=== PATIENT | female | born 1970 | race Caucasian/White ===

== ENCOUNTER 2019-07-07 08:25 | Day surgery (SDC) | payer BC ==
[~2019-07-07 08:25] MED LIST: Buffered Lidocaine 1% SYRIN* 1 ML/SYRINGE INTRADERM ONE; Lactated Ringers 1000 ML Bag* 1,000 ML IV SCH
[2019-07-07] MEDS ORDERED: ceFAZolin 2 GM in NS PREMIX(*) 2 GM/100 ML BAG IVPB ONE (09:15)
[2019-07-07] MEDS ORDERED: Midazolam* 1 MG/ML 5 ML VIAL (5 MG) ONE (09:34)
[2019-07-07] MEDS ORDERED: Bupivacaine 0.25% SDV* 30 ML ONE (09:49)
[2019-07-07] MEDS ORDERED: fentaNYL* 50 MCG/ML 2 ML VIAL (100 MCG VIAL) ONE (10:40)
[2019-07-07] MEDS ORDERED: Propofol* 10 MG/ML 20 ML BTL ONE ×2 (11:07→11:41)
[2019-07-07] MEDS ORDERED: Ondansetron INJ* 2 MG/ML VIAL ONE (11:07)
[2019-07-07] MEDS ORDERED: Ketorolac INJ* 30 MG/ML 1 ML VIAL ONE (11:07)
[2019-07-07] MEDS ORDERED: Dexamethasone IV* 4 MG/ML 1 ML (4 MG) ONE (11:07)
[2019-07-07] MEDS ORDERED: Lidocaine 2% PF * 5 ML VIAL ONE (11:07)
[2019-07-07] MEDS ORDERED: Glycopyrrolate IV* 0.2 MG/ML 1 ML VIAL ONE (11:07)
[2019-07-07] MEDS ORDERED: EPHEDrine (Pressors)* 50 MG/ML VIAL ONE (11:07)
[2019-07-07] MEDS ORDERED: oxyCODONE TAB* 5 MG TAB PO PRN (11:24)
[2019-07-07] MEDS ORDERED: Acetaminophen TAB* 325 MG PO PRN (11:24)
[2019-07-07] MEDS ORDERED: Naloxone* 0.4 MG/ML 1 ML VIAL IV PRN (11:24)
[2019-07-07] MEDS ORDERED: DiMENhydriNATE IV* 50 MG/ML VIAL IV PUSH PRN (11:24)
[2019-07-07 13:48] VITALS: BP 142/67
--- NOTE | 2019-07-08 01:14 | OP ---
DATE OF OPERATION: 07/07/19 - [facility] DATE OF : 66 SURGEON: Jourdan Alvarez MD PAMPHLET DISTRIBUTOR: RYLEE Greene ANESTHESIOLOGIST: Dr. Nguyen. ANESTHESIA: General. PRE-OP DIAGNOSES: 1. Severe recurrent right carpal tunnel syndrome. 2. Right cubital tunnel syndrome. 3. 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 POST-OP DIAGNOSES: 1. Severe right recurrent carpal tunnel syndrome with dense nerve adhesions. 2. Right cubital tunnel syndrome. OPERATIVE PROCEDURE: INDICATIONS: Ilene has had carpal tunnel surgery. After years, the numbness has recurred in the hand, it is dense. It is severe and extremely symptomatic. We talked about treatment options. She says all 5 fingers are affected. 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 She understands the risk of wound infections, nerve problems, and recurrent neuritis despite doing surgery. ESTIMATED BLOOD LOSS: 2 mL. COMPLICATIONS: None. FINDINGS: There were dense adhesions all about the median nerve. DESCRIPTION OF PROCEDURE: Ms. Ceballos was seen in the preoperative holding area. The correct site, side, and procedure were identified. We came back to the operating room. The arm was prepped and draped in the usual fashion and time- out was performed. The arm was exsanguinated with the Esmarch and the tourniquet inflated. I first made a longitudinal incision in the proximal palm. It was brought across the ulnar side of the wrist in Emy type fashion. Dissection was carried down through subcutaneous tissue. A very thin transverse carpal ligament was released just off the radial aspect of the hook of the hamate. Immediately noted were the flexor tendons in the carpal tunnel. The nerve was not seen. I went ahead and dissected proximally again through dense scar tissue and was able to find the nerve proximally just deep to the palmaris longus tendon. I then traced it distally and what had happened is that it was just densely adhered and stuck to the undersurface of the remnant of the transverse carpal ligament. I took a long time and I was able to carefully dissect it free from the transverse carpal ligament. I went ahead and performed a full neurolysis of the nerve. I debrided back the scar tissue. The nerve was not injured during the dissection. At this point, I had a nice neurolysis performed. I thought in an effort to try to prevent recurrent adhesions, I placed a nerve wrap and so we opened up an AxoGuard 7 x 40 mm nerve protector. This was wrapped around the nerve and then secured by sewing the edges of the wrap together with 6-0 Prolene suture taking care not to sew the wrap to the nerve. Once I had done this and confirmed that the nerve was not sewn into the wrap, there was nothing else I could do, things were looking good. The wound was irrigated out and skin was closed with 4-0 nylon suture. The arm was then abducted and externally rotated. I made a curvilinear incision over the cubital tunnel. Dissection was carried down. Howe's ligament was released. The medial antebrachial cutaneous nerve was identified and protected. I released the superficial FCU fascia. I then released a very katz subfascial layer and split the two ends of the FCU. I then came proximally, released the fascia overlying the nerve past the arcade of Gamaliel. At this point, the nerve was looking nicely decompressed. There was no ulnar nerve instability. I elected not to do a transposition. I also did not want to make any additional scar tissue and clearly she has propensity for forming scar tissue. The wound was irrigated out. Hemostasis was obtained with Bovie. Subcutaneous tissue was reapproximated with 3- 0 Vicryl. Skin was closed with 4-0 nylon. 0.25% Marcaine was infiltrated around all of the areas of the wounds. Soft dressings were applied and she was taken to the recovery room in stable condition. [id number]/[facility] #: [id number]
== END 2019-07-07 14:40 | disposition home or self-care (01) ==
LOC: OR 08:25
PROVIDERS: ATTEND Orthopaedic Surgery Hand Surgery
DX: G56.01 Carpal tunnel syndrome, right upper limb (principal); G56.21 Lesion of ulnar nerve, right upper limb; L90.5 Scar conditions and fibrosis of skin; E03.9 Hypothyroidism, unspecified; R01.1 Cardiac murmur, unspecified; F32.9 Major depressive disorder, single episode, unspecified
CPT/HCPCS: 81025; C1763; J0690; J1100; J1885; J2250; J2405; J2704; J3010; J3490

== ENCOUNTER 2022-04-05 17:18 | Inpatient (IN) ==
[2022-04-05 19:08] LABS: Urine Appearance Cloudy; Urine Bilirubin Negative (Negative); Urine Blood Negative (Negative); Urine Color Yellow; Urine Glucose Negative (Negative); Urine Ketones Negative (Negative); Urine Nitrite Negative (Negative); Urine Protein 1+(30 mg/dL) (Negative); Urine Specific Gravity 1.005 (1.002-1.030); Urine Urobilinogen Negative (Negative)
[2022-04-05 19:15] LABS: Urine Bacteria Absent (Absent); Urine Red Blood Cell Trace(0-2/hpf) (Absent); Urine Squamous Epithelial Cell Present (Absent); Urine White Blood Cell 3+(>20/hpf) (Absent)
[2022-04-05 19:24] LABS: Urine Benzodiazepine Screen None Detected (None Detect); Urine Cannabinoids Screen None Detected (None Detect); Urine Opiates Screen None Detected (None Detect)
[2022-04-06 11:18] LABS: ABS Basophils 0.1 10^3/ul (0-0.2); ABS Eosinophils 0.2 10^3/ul (0-0.6); ABS Monocytes 0.3 10^3/ul (0-0.8); ABS Neutrophils 5.1 10^3/ul (1.5-7.7); Eosinophil % 2.9 %; Hematocrit 41 % (35-47); Hemoglobin 13.6 g/dL (12.0-16.0); Lymphocyte % 15.5 %; Mean Corpuscular HGB Conc 33 g/dL (31-36); Mean Corpuscular Hemoglobin 29 pg (27-31); Mean Corpuscular Volume 89 fL (80-97); Mean Platelet Volume 8.5 fL (7.4-10.4); Platelet Count 185 10^3/uL (150-450); Red Blood Count 4.61 10^6 /uL (3.70-4.87); Red Cell Distribution Width 15 % (10-15); White Blood Count 6.7 10^3/uL (3.5-10.8)
[2022-04-06] MEDS: Venlafaxine XR 75 mg PO SCH (11:34)
[2022-04-06 12:02] LABS: Albumin 4.4 g/dL (3.2-5.2); Albumin/Globulin Ratio 1.6 (1-3); Calcium 10.1 mg/dL (8.6-10.3); Globulin 2.8 g/dL (2-4); Potassium 4.8 mmol/L (3.5-5.0); Total Bilirubin 0.5 mg/dL (0.2-1.0); Total Protein 7.2 g/dL (6.4-8.9)
[2022-04-06] MEDS: Latanoprost 0.005% 2.5 ml BTL LEFT EYE SCH (20:49)
[2022-04-06] MEDS ORDERED: Timolol 0.5% OPTH.SOL BTL LEFT EYE SCH (21:00)
[2022-04-07 07:48] LABS: HDL Cholesterol 58.1 mg/dL
[2022-04-07] MEDS: Timolol 0.5% OPTH.SOL BTL LEFT EYE SCH ×2 (08:44→17:26)
[2022-04-07] MEDS: Calcium Citrate 200 mg TAB PO SCH (08:45)
[2022-04-07] MEDS: Venlafaxine XR 75 mg PO SCH (08:45)
[2022-04-07] MEDS: Latanoprost 0.005% 2.5 ml BTL LEFT EYE SCH (20:32)
[2022-04-08] MEDS: Timolol 0.5% OPTH.SOL BTL LEFT EYE SCH ×2 (08:56→17:35)
[2022-04-08] MEDS: Calcium Citrate 200 mg TAB PO SCH (08:57)
[2022-04-08] MEDS: Venlafaxine XR 75 mg PO SCH (08:57)
[2022-04-08] MEDS: Latanoprost 0.005% 2.5 ml BTL LEFT EYE SCH (20:09)
[2022-04-09] MEDS: Venlafaxine XR 75 mg PO SCH (08:06)
[2022-04-09] MEDS: Calcium Citrate 200 mg TAB PO SCH (08:06)
[2022-04-09] MEDS: Timolol 0.5% OPTH.SOL BTL LEFT EYE SCH ×2 (08:06→17:08)
[2022-04-09] MEDS: Latanoprost 0.005% 2.5 ml BTL LEFT EYE SCH (20:34)
[2022-04-10] MEDS: Timolol 0.5% OPTH.SOL BTL LEFT EYE SCH (08:53)
[2022-04-10] MEDS: Calcium Citrate 200 mg TAB PO SCH (08:55)
[2022-04-10] MEDS: Venlafaxine XR 75 mg PO SCH (08:57)
[2022-04-10 10:49] VITALS: BP 137/57
== END 2022-04-10 12:48 | disposition home or self-care (01) | DRG 751 ==
LOC: ED 17:18 → EDHOLD 04-06 05:54 → BSU 04-06 06:23
PROVIDERS: ADMIT Psychiatry & Neurology Psychiatry; ATTEND Psychiatry & Neurology Psychiatry

== ENCOUNTER 2022-11-03 12:49 | Inpatient (IN) ==
[2022-11-03 14:09] LABS: ABS Lymphocytes 0.2 10^3/uL (1.0-4.8); ABS Monocytes 0.6 10^3/uL (0.0-0.9); ABS Neutrophils 11.6 10^3/uL (1.5-7.6); Hematocrit 36.8 % (35-45); Hemoglobin 12.1 g/dL (11.5-14.3); Lymphocyte % 1.9 %; Mean Corpuscular Hemoglobin 29.4 pg (27-33); Mean Corpuscular Volume 89.1 fL (80-97); Mean Platelet Volume 9.3 fL (7.5-11.2); Platelet Count 124 10^3/uL (150-450); Red Blood Count 4.13 10^6/uL (3.63-4.92); Red Cell Distribution Width 14.6 % (12-17); White Blood Count 12.4 10^3/uL (3.8-11.8)
[2022-11-03 14:13] LABS: Urine Appearance Turbid; Urine Bilirubin Negative (Negative); Urine Blood 3+ (Negative); Urine Color Amber; Urine Glucose Negative (Negative); Urine Ketones Negative (Negative); Urine Nitrite Positive (Negative); Urine Protein 2+(100 mg/dL) (Negative); Urine Urobilinogen Negative (Negative)
[2022-11-03] MEDS ORDERED: Lactated Ringers 1000 ml BAG 1,000 ML IV ONE ×2 (14:18→15:29)
[2022-11-03] MEDS ORDERED: cefTRIAXone 2 gm/50 mL D5W 2 GM/50 ML BAG IV ONE (14:18)
[2022-11-03 14:22] LABS: Urine Bacteria 2+ (Absent); Urine Red Blood Cell 3+(>10/hpf) (Absent); Urine Squamous Epithelial Cell Present (Absent); Urine White Blood Cell 3+(>20/hpf) (Absent)
[2022-11-03 14:27] LABS: Albumin 3.7 g/dL (3.2-5.2); Albumin/Globulin Ratio 1.1 (1-3); C Reactive Protein 218.76 mg/L (<8.01); Creatinine, Serum 3.77 mg/dL (0.51-0.95); Globulin 3.5 g/dL (2-4); Potassium 4.3 mmol/L (3.5-5.0); Total Bilirubin 1.5 mg/dL (0.2-1.0); Total Protein 7.2 g/dL (6.4-8.9); eGFR CKD-EPI 13.6 (>60)
[2022-11-03] MEDS: NS 0.9% 1000 ml BAG 1,000 ML IV SCH (22:14)
[2022-11-03] MEDS ORDERED: Timolol 0.5% OPTH.SOL BTL LEFT EYE SCH (22:45)
[2022-11-03] MEDS: Latanoprost 0.005% 2.5 ml BTL LEFT EYE SCH (23:26)
[2022-11-04 06:27] LABS: ABS Lymphocytes 0.2 10^3/uL (1.0-4.8); ABS Monocytes 0.5 10^3/uL (0.0-0.9); ABS Neutrophils 4.7 10^3/uL (1.5-7.6); Eosinophil % 0.1 %; Hematocrit 31.8 % (35-45); Hemoglobin 10.9 g/dL (11.5-14.3); Lymphocyte % 4.6 %; Mean Corpuscular Hemoglobin 30.3 pg (27-33); Mean Corpuscular Hgb Conc 34.3 g/dL (31-36); Mean Corpuscular Volume 88.3 fL (80-97); Mean Platelet Volume 9.5 fL (7.5-11.2); Nucleated Red Blood Cells % 0.1 /100 WBC (0.0-0.4); Platelet Count 107 10^3/uL (150-450); Red Cell Distribution Width 14.3 % (12-17); White Blood Count 5.4 10^3/uL (3.8-11.8)
[2022-11-04 06:43] LABS: Albumin/Globulin Ratio 1.1 (1-3); Calcium 8.4 mg/dL (8.6-10.3); Creatinine, Serum 3.49 mg/dL (0.51-0.95); Globulin 2.7 g/dL (2-4); Magnesium 2.2 mg/dL (1.9-2.7); Potassium 4.2 mmol/L (3.5-5.0); Total Bilirubin 1.4 mg/dL (0.2-1.0); Total Protein 5.7 g/dL (6.4-8.9); eGFR CKD-EPI 14.9 (>60)
[2022-11-04] MEDS: NS 0.9% 1000 ml BAG 1,000 ML IV SCH ×2 (07:26→17:01)
[2022-11-04] MEDS ORDERED: Venlafaxine XR 75 mg PO SCH (09:00)
[2022-11-04] MEDS: DULoxetine DR 30 mg CAP PO SCH (10:46)
[2022-11-04] MEDS: Timolol 0.5% OPTH.SOL BTL LEFT EYE SCH ×2 (10:46→17:02)
[2022-11-04] MEDS ORDERED: Cholestyramine Resin 4 GM POWDER PO SCH (11:00)
[2022-11-04] MEDS ORDERED: cefTRIAXone 1 gm/50 mL D5W 1 GM/50 ML BAG IV SCH (14:00)
[2022-11-04] MEDS: cefTRIAXone 1 gm/50 mL D5W 1 GM/50 ML BAG IV SCH (15:35)
[2022-11-04] MEDS: Latanoprost 0.005% 2.5 ml BTL LEFT EYE SCH (21:51)
[2022-11-05 09:10] LABS: Albumin 3.2 g/dL (3.2-5.2); Calcium 8.8 mg/dL (8.6-10.3); Creatinine, Serum 2.94 mg/dL (0.51-0.95); Globulin 3.1 g/dL (2-4); Potassium 4.4 mmol/L (3.5-5.0); Total Bilirubin 1.7 mg/dL (0.2-1.0); Total Protein 6.3 g/dL (6.4-8.9); eGFR CKD-EPI 18.4 (>60)
[2022-11-05] MEDS: NS 0.9% 1000 ml BAG 1,000 ML IV SCH ×2 (09:34→23:00)
[2022-11-05] MEDS: Timolol 0.5% OPTH.SOL BTL LEFT EYE SCH ×2 (09:34→16:40)
[2022-11-05] MEDS: DULoxetine DR 30 mg CAP PO SCH (09:35)
[2022-11-05] MEDS: cefTRIAXone 1 gm/50 mL D5W 1 GM/50 ML BAG IV SCH (14:09)
[2022-11-05 14:12] LABS: Hepatitis B Surface Antigen Nonreactive (Nonreactive)
[2022-11-05 14:29] LABS: Hepatitis B Surface Ab Not Immune (Immune)
[2022-11-05 14:30] LABS: Hepatitis C Antibody Negative (Negative)
[2022-11-05] MEDS ORDERED: Benzocaine/Menthol LOZ MT PRN (16:28)
[2022-11-05] MEDS: guaiFENesin 100 mg/5 ml LIQ unit dose cup PO PRN (16:40)
[2022-11-05] MEDS: Latanoprost 0.005% 2.5 ml BTL LEFT EYE SCH (20:58)
[2022-11-05] MEDS: Benzocaine (plain) Lozenge 15 MG MT PRN (20:58)
[2022-11-06 07:15] LABS: Albumin/Globulin Ratio 1.1 (1-3); Calcium 8.4 mg/dL (8.6-10.3); Creatinine, Serum 2.82 mg/dL (0.51-0.95); Globulin 2.8 g/dL (2-4); Potassium 4.5 mmol/L (3.5-5.0); Total Bilirubin 1.4 mg/dL (0.2-1.0); Total Protein 5.8 g/dL (6.4-8.9); eGFR CKD-EPI 19.3 (>60)
[2022-11-06] MEDS: DULoxetine DR 30 mg CAP PO SCH (08:58)
[2022-11-06] MEDS: Benzocaine (plain) Lozenge 15 MG MT PRN ×2 (08:59→17:05)
[2022-11-06] MEDS: Timolol 0.5% OPTH.SOL BTL LEFT EYE SCH ×2 (08:59→17:05)
[2022-11-06] MEDS: cefTRIAXone 1 gm/50 mL D5W 1 GM/50 ML BAG IV SCH (14:23)
[2022-11-06] MEDS ORDERED: Piperacillin/Tazobac ADVAN 3.375 GM in NS 0.9% 100 ml BAG 100 ML IV ONE (18:22)
[2022-11-06] MEDS ORDERED: Lactated Ringers 1000 ml BAG 1,000 ML IV ONE (18:25)
[2022-11-06] MEDS ORDERED: Zosyn per Pharmacy NOTE FOLLOW UP SCH (19:00)
[2022-11-06] MEDS: Latanoprost 0.005% 2.5 ml BTL LEFT EYE SCH (19:54)
[2022-11-07] MEDS: ZOSYN 3.375 GM Q12H per EXTENDED INFUSION IV SCH ×2 (00:13→13:33)
[2022-11-07 08:00] LABS: Hematocrit 30.2 % (35-45); Hemoglobin 10.3 g/dL (11.5-14.3); Mean Corpuscular Hemoglobin 30.1 pg (27-33); Mean Corpuscular Hgb Conc 34.1 g/dL (31-36); Mean Corpuscular Volume 88.3 fL (80-97); Mean Platelet Volume 9.7 fL (7.5-11.2); Platelet Count 134 10^3/uL (150-450); Red Blood Count 3.42 10^6/uL (3.63-4.92); Red Cell Distribution Width 14.2 % (12-17); White Blood Count 6.8 10^3/uL (3.8-11.8)
[2022-11-07 08:16] LABS: C Reactive Protein 96.7 mg/L (<8.01); Calcium 8.8 mg/dL (8.6-10.3); Creatinine, Serum 2.8 mg/dL (0.51-0.95); Globulin 2.9 g/dL (2-4); Potassium 4.5 mmol/L (3.5-5.0); Total Bilirubin 1.2 mg/dL (0.2-1.0); Total Protein 5.9 g/dL (6.4-8.9); eGFR CKD-EPI 19.5 (>60)
[2022-11-07] MEDS ORDERED: Lactated Ringers 1000 ml BAG 1,000 ML IV ONE (08:54)
[2022-11-07 09:05] LABS: ABS Eosinophils 0.2 10^3/uL (0.0-0.5); ABS Lymphocytes 0.7 10^3/uL (1.0-4.8); ABS Monocytes 1.1 10^3/uL (0.0-0.9); ABS Neutrophils 4.8 10^3/uL (1.5-7.6); Lymphocyte % 10.3 %; Nucleated Red Blood Cells % 0.1 /100 WBC (0.0-0.4); RBC Morphology Normal (Normal)
[2022-11-07] MEDS: DULoxetine DR 30 mg CAP PO SCH (09:24)
[2022-11-07] MEDS: Timolol 0.5% OPTH.SOL BTL LEFT EYE SCH ×2 (09:32→16:19)
[2022-11-07] MEDS: Benzocaine (plain) Lozenge 15 MG MT PRN (18:08)
[2022-11-07] MEDS: Latanoprost 0.005% 2.5 ml BTL LEFT EYE SCH (20:55)
[2022-11-07] MEDS: ZOSYN 3.375 GM Q8H per EXTENDED INFUSION IV SCH (20:56)
[2022-11-08] MEDS: ZOSYN 3.375 GM Q8H per EXTENDED INFUSION IV SCH (05:45)
[2022-11-08 06:41] VITALS: BP 161/83
[2022-11-08] MEDS: DULoxetine DR 30 mg CAP PO SCH (08:22)
[2022-11-08] MEDS: Timolol 0.5% OPTH.SOL BTL LEFT EYE SCH (08:22)
[2022-11-08] MEDS: guaiFENesin 100 mg/5 ml LIQ unit dose cup PO PRN (08:26)
== END 2022-11-08 10:10 | disposition home or self-care (01) | DRG 720 ==
LOC: ED 12:49 → EDHOLD 12:49 → SUATTDRO 19:20 → MED 21:34
PROVIDERS: ADMIT Internal Medicine; ATTEND Internal Medicine